=== PATIENT | male | born 1960 | race Caucasian/White ===

== ENCOUNTER 2025-02-09 13:04 | Emergency (ER) | payer OTHER, SELFPAY ==
--- OUTSIDE RECORDS SUMMARY | 2025-02-09 13:15 | XMS_ITS | Encounter Summary ---
Author Organization [facility] Address [address] [place] [address] Phone Care Team Providers Care Bench Hand Name Role Phone iJm Abbasi MD Primary Care Provider + Encounter Details Date Type Department Care Team (Late st Contact Info) Description 12/08/2024 Results Follow-Up [facility] Medical Office Building [address] [place] [address] James Kaur MD [address] [place], [place] [id number] ECG 12 lead Social History Tobacco Use Types Packs/Day Years Used Date Smoking Tobacco: Never Smokeless Tobacco: Never AUDIT-C Answer Date Recorded Q1: How often do you have a drink containing alcohol? Never 12/19/2024 Q2: How many drinks containi ng alcohol do you have on a typical day when you are drinking? Patient does not drink Q3: How often do you have si x or more drinks on one occasion? Never 12/19/2024 PHQ-2 Answer Date Recorded PHQ-2 Total Score (If total score is 3 or more points, staff should administer the PHQ-9) 1 05/08/2023 Personal Safety Answer Date Recorded Have you ever been in or are you currently in a harmful physical or emotional relationship or is someone making you feel afraid or unsafe? Denies 12/19/2024 Sex and Gender Information Value Date Recorded Sex Assigned at Not on file Legal Sex Male 3:34 AM [employer] Gender Identity Male 06/22/2020 2:09 PM CDT Sexual Orientation Not on file documented as of this encounter Functional Status * Audit-C Score Answer Date of Assessment Author 0 12/19/2024 7:02 AM Faviola Henriquez RN * Question Answer Date of Assessment Author Q1: How often do you have a drink containing alcohol? Never 12/19/2024 7:02 AM Brian Henriquez RN Q2: How many drinks containing alcohol do you have on a typical day when you are drinking? Patient does not drink 12/19/2024 7:02 AM Brian Henriquez RN Q3: How often do you have six or more drinks on one occasion? Never 12/19/2024 7:02 AM Brian Henriquez RN documented as of this encounter Plan of Treatment Not on file documented as of this encounter Visit Diagnoses Not on filedocumented in this encounter Care Teams Bench Hand Relationship Specialty Start Date End Date Jim Abbasi MD PCP - General Endocrinology Diabetes & Metabolism 06/15/20 documented as of this encounter
--- OUTSIDE RECORDS SUMMARY | 2025-02-09 13:15 | XMS_ITS | Referral Summary ---
Author Organization [facility] [address] [place] [address] Care Team Providers Care Construction Job Cost Estimator Name Role Phone Jim Abbasi MD Primary Care Provider + Encounters Date Type Department Care Team Description 12/22/2024 Telephone [facility] [address] [facility] 8th [place] [address] [place] [address] James Kaur MD 12/22/2024 Telephone [facility] [address] [facility] Office Building [address] [place] [address] [facility] 12/19/2024 Telephone [facility] [address] [facility] Office Building [address] [place] [address] [facility] 12/19/2024 Telephone [facility] [address] [facility] Office Building [address] [place] [address] [facility] 12/19/2024 Results Follow-Up [facility] [address] [facility] Office [facility] [address] [place] [phone] Maria E Lopez RN Cardiac Catheterization 12/19/2024 8:00 AM CDT - 12/19/2024 9:50 AM CDT Surgery [facility] [address] [place] [address] Mikel Reid MD LEFT HEART CATHETERIZATION WITH CORONARY ANGIOGRAPHY AND WITH OR WITHOUT LEFT VENTRICULOGRAM [id number] 12/19/2024 6:23 AM CDT - 12/19/2024 12:09 PM CDT Hospital Encounter [facility] [address] [place] [address] Mikel Reid MD Elevated coronary artery calcium score; Family history of coronary artery bypass graft Discharge Disposition: Discharge to home or self care 12/10/2024 9:20 AM CDT Lab [facility] [address] [place] [address] 12/08/2024 Telephone [facility] [address] [place] [address] Medical Office Building [address] [place] [phone] James Kaur MD [facility] 12/08/2024 Results Follow-Up [facility] [address] [place] [address] Office Building [address] [place] [phone] James Kaur MD ECG 12 lead 12/08/2024 2:00 PM CDT Office Visit [facility] [address] [place] [address] Office [facility] [address] [place] [phone] James Kaur MD Elevated coronary artery calcium score (Primary Dx); Family history of coronary artery bypass graft; Stable angina pectoris 12/05/2024 11:25 AM CDT - 12/05/2024 1:17 PM CDT Emergency [address] [address] Chest pain, unspecified type (Primary Dx) Discharge Disposition: Discharge to home or self care 12/03/2024 Telephone [facility] [address] [facility] 8th [place] [address] [place] [address] Celi Morales 12/01/2024 Results Follow-Up [facility] [address] [facility] [address] [facility] [place] [address] CORONARY CALCIUM SCORING 11/28/2024 3:23 PM CDT - 11/28/2024 11:59 PM CDT Hospital Encounter [facility] [address] [place] [address] Type 2 diabetes mellitus without complication, without long-term current use of insulin (HCC); Family history of coronary artery bypass graft Discharge Disposition: Discharge to home or self care 11/20/2024 Results Follow-Up [facility] [address] [place] [phone] Head WO Contrast 11/20/2024 8:22 AM CDT - 11/20/2024 11:59 PM CDT Hospital Encounter [facility] Rad[facility] ([facility]) [address] [place] [phone] Dizziness; Nonintractable headache, unspecified chronicity pattern, unspecified headache type Discharge Disposition: Discharge to home or self care 11/19/2024 Results Follow-Up [facility] [address] [place] [phone] Rajni Tovar NP Basic metabolic panel, eGFR 11/19/2024 11:00 AM CDT Lab [facility] ([facility]) [address] [place] [phone] Dizziness; Hyperkalemia 11/19/2024 9:15 AM CDT Office Visit [facility] [address] [place] [phone] Rajni Tovar NP Dizziness (Primary Dx); Nonintractable headache, unspecified chronicity pattern, unspecified headache type; Family history of coronary artery bypass graft 11/18/2024 Telephone [facility] [address] [place] [phone] Jim Abbasi MD Dizziness 11/12/2024 8:00 AM CRISIS INTERVENTION COUNSELOR Office Visit [facility] [address] [place] [address] Rajni Tovar NP Type 2 diabetes mellitus without complication, without long-term current use of insulin ([facility]) (Primary Dx); Psoriasis; Constipation, unspecified constipation type; Family history of coronary artery bypass graft from Last 3 Months Allergies Active Allergy Reactions Criticality Noted Date Comments Ragweed Medications multivitamin capsule Take 1 capsule by mouth daily Active Jardiance 25 mg tablet TAKE 1 TABLET(25 MG) BY MOUTH DAILY 30 tablet 11 4 Active metFORMIN (GLUCOPHAGE) 1,000 mg tablet TAKE 1 TABLET(1000 MG) BY MOUTH TWICE DAILY WITH MEALS 60 tablet 11 4 Active glimepiride (AMARYL) 2 mg tablet TAKE 1 TABLET(2 MG) BY MOUTH TWICE DAILY 180 tablet 3 4 Active polyethylene glycol (GoLYTELY) 236-22.74-6.74 -5.86 gram solutionIndicat ions:colonoscop y On 07/01/2024 at 6 PM, drink 1/2 jug of the Nulytely/Golytel y, then on 07/02/2024 at 3:30 AM drink the other 1/2 jug of the Nulytely/Golytel y until completely gone. May substitute with any 4 L PEG 4000 mL 4 Active Additional Information Patient not taking.Reported on 12/08/2024 clobetasoL (TEMOVATE) 0.05 % external solution 4 Active tirzepatide (Mounjaro) 7.5 mg/0.5 mL pen injector injectionIndica tions:type 2 diabetes mellitus Inject 0.5 mL (7.5 mg total) under the skin every 7 days 2 mL 11 5 11/13/19 26 Active meclizine (ANTIVERT) 25 mg tablet Take 1 tablet (25 mg total) by mouth 3 (three) times a day as needed for dizziness 30 tablet 5 Active aspirin 81 mg enteric coated tablet Take 1 tablet (81 mg total) by mouth daily 30 tablet 11 5 Active Active Problems Problem Noted Date Diagnosed Date Elevated coronary artery calcium score 5 Family history of coronary artery bypass graft 0 12/08/2024 Positive colorectal cancer screening using Colog uard test 06/10/2024 Type 2 diabetes mellitus wit hout complication, with long-term current use of insulin 06/15/2020 Overview (06/15/2020): Start SGLt2 Testicular hypofunction 06/15/2020 Overview (06/15/2020): Continue T replacement Skin tag 05/24/2016 Benign neoplasm of soft tissues 05/23/2016 Psoriasis vulgaris 05/10/2015 Psoriasis 02/09/2015 Immunizations Immunization Administration Dates Next Due Moderna SARS-CoV-2 Monovalen t Vaccination (12+ YRS) 08/17/2022,03/09/2022,07/07/2021 Social History Tobacco Use Types Packs/Day Years Used Date Smoking Tobacco: Never Smokeless Tobacco: Never Tobacco Cessation:Counseling Given: Not Answered AUDIT-C Answer Date Recorded Q1: How often [...] on file Legal Sex Male 3:34 AM CRISIS INTERVENTION COUNSELOR Gender Identity Male 06/22/2020 2:09 PM CDT Sexual Orientation Not on file Last Filed Vital Signs Vital Sign Reading Time Taken Comments Blood Pressure 129/80 12/19/2024 11:45 AM CDT Pulse 78 12/19/2024 11:45 AM CDT Temperature 36.8 C (98.2 F) 12/19/2024 6:50 AM CDT Respiratory Rate 19 12/19/2024 11:4 5 AM CDT Oxygen Saturation 96% 12/19/2024 11: 45 AM CDT Inhaled Oxygen Concentration - - Weight 106.7 kg (235 lb 3.7 oz) 12/19/2024 6:50 AM CDT Height 182.9 cm (6') 12/19/2024 6:50 AM CDT Body Mass Index 31.9 12/19/2024 6:50 AM CDT Plan of Treatment Not on file Procedures Procedure Name Priority Date/Time Associated Diagnosis Comments LEFT HEART CATHETERIZATION WITH CORONARY ANGIOGRAPHY AND WITH AND WITHOUT LEFT VENTRICULOGRAM Routine 12/19/2024 9:06 AM CDT Elevated coronary artery calcium score Family history of coronary artery bypass graft CBC WITHOUT DIFFERENTIAL Routine 12/19/2024 8:47 AM CDT POC BLOOD GAS AND CHEMISTRIES, ARTERIAL Routine 12/19/2024 7:21 AM CDT POC BLOOD GAS AND CHEMISTRIES, ARTERIAL Routine 12/19/2024 7:18 AM CDT EGFR Routine 12/10/2024 8:40 AM CDT Preprocedural cardiovascular examination DIFFERENTIAL AUTO Routine 12/10/2024 8:4 0 AM CDT Preprocedural cardiovascular examination LIPID PANEL Routine 12/10/2024 8:40 AM CDT Elevated coronary artery calcium score Family history of coronary artery bypass graft CBC WITH AUTO DIFFERENTIAL Routine 12/10/2024 8:40 AM CDT Preprocedural cardiovascular examination BASIC METABOLIC PANEL Routine 12/10/2024 8:40 AM CDT Preprocedural cardiovascular examination ECG 12-LEAD Routine 12/08/2024 1:58 PM CDT Elevated coronary artery calcium score TROPONIN T HIGH-SENSITIVITY 2-HOUR Timed 12/05/2024 12:35 PM CDT XR CHEST 1 VIEW ED 12/05/2024 11:00 AM CDT ECG 12-LEAD STAT 12/05/2024 10:32 AM CDT EGFR STAT 12/05/2024 10:29 AM CDT DIFFERENTIAL AUTO STAT 12/05/2024 10:29 AM CDT TROPONIN T HIGH-SENSITIVITY SERIES (BASELINE, 2HR, 4HR, 6HR) STAT 12/05/2024 10:29 AM CDT COMPREHENSIVE METABOLIC PANEL STAT 12/05/2024 10:29 AM CDT CBC WITH AUTO DIFFERENTIAL STAT 12/05/2024 10:[address] HEART CALCIUM Schedule Routine, Read Routine (OP Routine) 11/28/2024 3:43 PM CDT Type 2 diabetes mellitus without complication, without long-term current use of insulin (HCC) Family history of coronary artery bypass graft CT HEAD WO CONTRAST Schedule Routine, Read Routine (OP Routine) 11/20/2024 9:16 AM CDT Dizziness Nonintractable headache, unspecified chronicity pattern, unspecified headache type EGFR Routine 11/19/2024 9:52 AM CDT Dizziness BASIC METABOLIC PANEL Routine 11/19/2024 9:52 AM CDT Dizziness POCT HEMOGLOBIN A1C Routine 11/12/2024 8 :05 AM CRISIS INTERVENTION COUNSELOR Type 2 diabetes mellitus without complication, without long-term current use of insulin (HCC) COLONOSCOPY 08/12/2024 8:00 AM CRISIS INTERVENTION COUNSELOR ALBUMIN CREATININE RATIO, URINE Routine 05/09/2024 9:05 AM CDT Type 2 diabetes mellitus without complication, with long-term current use of insulin (HCC) PSA SCREEN Routine 05/09/2024 9:05 AM CDT Prostate cancer screening SERUM HEPATITIS PANEL Routine 02/09/2015 11:24 AM CDT from Last 3 Months or Most Recently Relevant to Health Maintenance Results * LEFT HEART CATHETERIZATION WITH CORONARY ANGIOGRAPHY AND WITH AND WITHOUT LEFT VENTRICULOGRAM (12/19/2024 9:06 AM CDT) Anatomical Region Laterality Modality X-Ray Angiograph y Impressions 12/19/2024 10:15 AM CDT Mild nonobstructive coronary disease Normal left ventricular end diastolic blood pressure.. THERAPEUTIC RECOMMENDATIONS: Secondary medical therapy for coronary disease Narrative 12/19/2024 10:15 AM CDT Images from the original result were not included. Cardiovascular Procedure [facility] [address], [address] [place] [phone] DIAGNOSTIC CATHETERIZATION REPORT Patient: Spencer Santana : 1960 MR number: [id number] Date of Service: 12/19/2024 Lead Recreation Assistant: Mikel Reid MD INDICATION: Stable angina CCS class 2 PATIENT CLINICAL PROFILE: Spencer Santana is a 64 y.o. male with a history of dyslipidemia, elevated coronary calcium score. He presented with a chest pain symptoms possibly compatible with angina. He was referred for diagnostic cardiac catheterization PROCEDURE: The risks, benefits and alternatives of the procedures and moderate sedation were explained to the patient and informed consent was obtained. The patient was brought to the cardiac catheterization technician and placed on the table. The RIGHT radial artery site was infiltrated with 1% lidocaine. The vessel was accessed using ultrasound guidance. Using the modified Seldinger technique, a wire was threaded into the vessel, and a 6 Fr Sheath was advanced over the wire into the vessel. Left coronary artery angiogram was performed using a 5 Fr JL3.5 catheter. Right coronary artery angiogram was performed using a 5 Fr JR4 catheter. Left ventricular hemodynamics were measured using jr4 catheter, no left ventriculogram was done. I provided direct [id number] moderate conscious sedation which administered by independent trained nurse using fentanyl and Versed for 30 minutes At the end of the procedure, the radial artery sheath was removed with TR band for hemostasis. Patient was transferred to the holding area in stable condition. RESULTS: Hemodynamics: Left ventricular blood pressure was 105/12. There was no gradient on pull back across the aortic valve Coronary Arteriography: Left main coronary: Normal Left anterior descending: Mild calcific plaque in the proximal LAD Left circumflex: Large vessel supplying major OM branches, mild 30 to 40% focal stenosis in OM2, otherwise normal Right coronary artery: Right dominant system. Mild plaquing distally, otherwise normal COMPLICATIONS: None. DIAGNOSTIC us James Kaur MD CV CARDIAC CATH PROCEDURES F inal Result * CBC without differential (12/19/2024 8:47 AM CDT) WBC 5.43 3.80 - 9.90 K/cumm Hgb 13.9 13.0 - 17.5 g/dL [facility] Hct 40.2 38.9 - 50.3 % [facility] Plt 203 150 - 400 K/cumm [facility] MPV 10.0 9.1 - 12.3 fL [facility] RBC 4.93 4.30 - 5.80 M/cumm [facility] MCV 81.5 81.3 - 96.4 fL [facility] MCH 28.2 27.1 - 33.3 pg [facility] MCHC 34.6 32.3 - 35.7 g/dL [facility] RDW CV 13.0 11.1 - 14.9 % [facility] RDW SD 38.3 35.7 - 48.1 fL [facility] NRBC abs 0.00 0.00 - 0.01 K/cumm [facility] Blood 12/19/2024 8:47 AM CDT 12/19/2024 8:53 AM CDT Narrative [facility] - 12/19/2024 9:18 AM CDT To be drawn after hydration bolus complete us Mikel Reid MD LAB BLOOD ORDERABLES Final Result [facility] Department [place] [address] * (ABNORMAL) POC Blood Gas and Chemistries, Arterial - (12/19/2024 7:21 AM CDT) [facility] Glucose, POC 241(H) 70 - 199 mg/dL Blood 12/19/2024 7:21 AM CDT 12/19/2024 7:21 AM CDT us Mikel Reid MD LAB POCT ORDERABLES - DEVICE Final Result Performing Organization Address [facility] Co de Phone Number [facility] [place] [address] * POC Blood Gas and Chemistries, Arterial - (12/19/2024 7:18 AM CDT) [facility] K POC 3.6 3.3 - 4.9 mmol/L Comment: Interpretive Data Not all point of care methods assess for hemolysis. Confirm with instrument and retest K+ if not consistent with clinical signs and symptoms. Current Interpretive Data was last revised on 2024. Blood 12/19/2024 7:18 AM CDT 12/19/2024 7:18 AM CDT us Mikel Reid MD LAB POCT ORDERABLES - DEVICE Final Result Performing Organization Address City/[facility] Co de Phone Number [facility] Department [place] [address] * eGFR (12/10/2024 8:40 AM CDT) [facility] eGFR >90 >=60 mL/min/1. 73 m2 Comment: Interpretive Data Reference Interval Normal >/= 90 mL/min/1.73m2 Mildly decreased* 60 - 89 mL/min/1.73m2 Mildly to moderately decreased 45 - 59 mL/min/1.73m2 Moderately to severely decreased 30 - 44 mL/min/1.73m2 Severely decreased 15 - 29 mL/min/1.73m2 Kidney Failure < 15 mL/min/1.73m2 *Relative to young adult level Estimated glomerular filtration rate is determined by the 2020 CKD-EPI equation recommended by the National Kidney Foundation (A Unifying Approach to GFR Estimation: Recommendations of the NKF-ASK Task Force on Reassessing the Inclusion of Race in Diagnosing Kidney Disease, JASN 202). The CKD-EPI equation should not be used for patients with unstable renal function and has not been validated in children and those over 70. Current interpretive data was last reviewed 2021. Blood 12/10/2024 8:40 AM CDT 12/10/2024 9:13 AM CDT us James Kaur MD LAB BLOOD ORDERABLES Final R esult [facility] Department [place] [address] * Differential, auto (12/10/2024 8:40 AM CDT) Neutrophil abs 4.28 1.50 - 6.50 K/cumm Imm gran abs 0.03 0.00 - 0.10 K/cumm [facility] Lymphocyte abs 1.53 0.80 - 3.30 K/cumm [facility] Monocyte abs 0.43 0.20 - 0.80 K/cumm [facility] Eosinophil abs 0.18 0.00 - 0.50 K/cumm [facility] Basophil abs 0.06 0.00 - 0.10 K/cumm [facility] Neutrophil pct 65.7 % [facility] Comment: Interpretive Data Percent cell count reference ranges are not reported, since discordance with absolute values may lead to misinterpretation of CBC data. Current Interpretive Data was last revised on 2017. Imm gran pct 0.5 % [facility] Comment: Interpretive Data Percent cell count reference ranges are not reported, since discordance with absolute values may lead to misinterpretation of CBC data. Current Interpretive Data was last revised on 2017. Lymphocyte pct 23.5 % [facility] Comment: Interpretive Data Percent cell count reference ranges are not reported, since discordance with absolute values may lead to misinterpretation of CBC data. Current Interpretive Data was last revised on 2017. Monocyte pct 6.6 % [facility] Comment: Interpretive Data Percent cell count reference ranges are not reported, since discordance with absolute values may lead to misinterpretation of CBC data. Current Interpretive Data was last revised on 2017. Eosinophil pct 2.8 % [facility] Comment: Interpretive Data Percent cell count reference ranges are not reported, since discordance with absolute values may lead to misinterpretation of CBC data. Current Interpretive Data was last revised on 2017. Basophil pct 0.9 % [facility] Comment: Interpretive Data Percent cell count reference ranges are not reported, since discordance with absolute values may lead to misinterpretation of CBC data. Current Interpretive Data was last revised on 2017. Blood 12/10/2024 8:40 AM CDT 12/10/2024 9:13 AM CDT us James Kaur MD LAB BLOOD ORDERABLES Final R esult [facility] Department [place] [address] * CBC with auto differential (12/10/2024 8:40 AM CDT) WBC 6.51 3.80 - 9.90 K/cumm Hgb 15.3 13.0 - 17.5 g/dL [facility] Hct 44.3 38.9 - 50.3 % [facility] Plt 242 150 - 400 K/cumm [facility] MPV 10.4 9.1 - 12.3 fL [facility] RBC 5.30 4.30 - 5.80 M/cumm [facility] MCV 83.6 81.3 - 96.4 fL [facility] MCH 28.9 27.1 - 33.3 pg [facility] MCHC 34.5 32.3 - 35.7 g/dL [facility] RDW CV 13.3 11.1 - 14.9 % [facility] RDW SD 40.2 35.7 - 48.1 fL [facility] NRBC abs 0.00 0.00 - 0.01 K/cumm [facility] Blood 12/10/2024 8:40 AM CDT 12/10/2024 9:13 AM CDT us James Kaur MD LAB BLOOD ORDERABLES Final R esult [facility] Department [place] [address] * (ABNORMAL) Lipid panel (12/10/2024 8:40 AM CDT) Cholesterol 124 30 - 199 mg/dL Comment: Interpretive Data Ages < or = 19 years Acceptable: <170 mg/dL Borderline high: 170-199 mg/dL High: >or= 200 mg/dL Ages > or = 20 years Desirable: <200 mg/dL Borderline high: 200-239 mg/dL High: >or= 240 mg/dL Literature References: 1. Expert Panel on Integrated Guidelines for Cardiovascular Health and Risk Reduction in Children and Adolescents. Pediatrics 2011;128:S213 2. NCEP Expert Panel. Circulation 2004;110:227 Current Interpretive Data was last revised on 2018. Triglycerides 139 <=149 mg/dL [facility] Comment: Interpretive Data Ages < or = 9 years Acceptable: <75 mg/dL Borderline high: 75-99 mg/dL High: >or= 100 mg/dL Ages 10 to 20 years Acceptable: <90 mg/dL Borderline high: 90-129 mg/dL High: >or= 130 mg/dL Ages > or = 20 years Desirable: <150 mg/dL Borderline high: 150-199 mg/dL High: 200-499 mg/dL Very high: >or= 499 mg/dL Literature References: 1. Expert Panel on Integrated Guidelines for Cardiovascular Health and Risk Reduction in Children and Adolescents. Pediatrics 2011;128:S213 2. NCEP Expert Panel. Circulation 2004;110:227 Current Interpretive Data was last revised on 2018. HDL 35(L) >=40 mg/dL [facility] Comment: Interpretive Data Ages < or = 19 years Acceptable: >45 mg/dL Borderline low: 40-45 mg/dL Low: <40 mg/dL Ages > or = 20 years Desirable: >or= 60 mg/dL Low: <40 mg/dL Literature References: 1. Expert Panel on Integrated Guidelines for Cardiovascular Health and Risk Reduction in Children and Adolescents. Pediatrics 2011;128:S213 2. NCEP Expert Panel. Circulation 2004;110:227 Current Interpretive Data was last revised on 2018. LDL, calculated 64 <=129 mg/dL [facility] Comment: Interpretive Data Ages < or = 19 years Acceptable: <110 mg/dL Borderline high: 110-129 mg/dL High: >or= 130 mg/dL Ages > or = 20 years Optimal: <100 mg/dL Near optimal: 100-129 mg/dL Borderline high: 130-159 mg/dL High: >160 mg/dL Calculated using the Axel LDL-C estimating equation. This equation was implemented on 2024. Prior to this date LDL-C was estimated using the Friedewald equation. Literature References: 1. Expert Panel on Integrated Guidelines for Cardiovascular Health and Risk Reduction in Children and Adolescents. Pediatrics 2011;128:S213 2. NCEP Expert Panel. Circulation 2004;110:227 3. Axel Cormier et al. WILMA Cardiol. 2019January 08;5(5):540-548. doi: 10.1001/jamacardio.2020.0013 Current Interpretive Data was last revised on 2024. Non-HDL Cholesterol 89 mg/dL [facility] Comment: Interpretive Data Ages < or = 19 years Acceptable: <120 mg/dL Borderline high: 120-144 mg/dL High: >145 mg/dL Ages > or = 20 years When triglycerides are >200 mg/dL, Non-HDL cholesterol is a secondary target of therapy with treatment goals that are 30 mg/dL greater than the LDL cholesterol target. Literature References: 1. Expert Panel on Integrated Guidelines for Cardiovascular Health and Risk Reduction in Children and Adolescents. Pediatrics 2011;128:S213 2. NCEP Expert Panel. Circulation 2004;110:227 Current Interpretive Data was last revised on 2018. Chol/HDL ratio 4 [facility] Blood 12/10/2024 8:40 AM CDT 12/10/2024 9:13 AM CDT James Kaur MD LAB BLOOD ORDERABLES Final R esult [facility] Department [place] [address] * (ABNORMAL) Basic metabolic panel (12/10/2024 8:40 AM CDT) [facility] Sodium 140 135 - 145 mmol/L Potassium, pl 5.1(H) 3.3 - 4.9 mmol/L [facility] Comment:Hemolyzed; Potassium value may be falsely elevated by as much as 0.6-1.0 mmol/L. Suggest redraw and reanalysis. Chloride 103 97 - 110 mmol/L [facility] CO2 26 22 - 32 mmol/L [facility] Anion gap 11 2 - 15 mmol/L [facility] BUN 13 6 - 25 mg/dL [facility] Creatinine 0.72(L) 0.80 - 1.30 mg/dL [facility] Glucose 213(H) 70 - 199 mg/dL [facility] Comment: Interpretive Data Fasting glucose >/= 126 mg/dl is diagnostic for diabetes. Fasting is defined as no caloric intake for at least 8 hours. Fasting glucose between 100 mg/dl to 125 mg/dl is diagnostic of prediabetes. In a patient with classic symptoms of hyperglycemia or hyperglycemic crisis, a random glucose >/= 200 mg/dl is diagnostic for diabetes. In the absence of unequivocal hyperglycemia, results should be confirmed by repeat testing. The classification and Diagnosis of Diabetes Diabetes Care 2021; 46: S19-S40. Current interpretive data was last revised 2022. Calcium 9.4 8.5 - 10.3 mg/dL [facility] Blood 12/10/2024 8:40 AM CDT 12/10/2024 9:13 AM CDT James Kaur MD LAB BLOOD ORDERABLES Final R esult MAURICIO GUTIERREZH [facility] Department [place] [address] * ECG 12 lead (12/08/2024 1:58 PM CDT) us James Kaur MD ECG ORDERABLES Edited Resul t - Final * Troponin T high-sensitivity 2-hour (12/05/2024 12:35 PM CDT) Trop T hs <6 <=22 ng/L Comment: Interpretive Data For further hscTnT resources including the diagnostic algorithm and an aid in interpretation, copy and paste this link: https://nrl.testcatalog.org/show/hsTrop Current Interpretive Data last revised 2020. Trop T hs delta 0 ng/L MAURICIO Trop T hs interp Insignificant [facility]IO Blood 12/05/2024 12:3 5 PM CDT 12/05/2024 12:37 PM CDT us Alex Austin DO LAB BLOOD ORDERABLES Final Result Performing Organization Address [facility] Co de Phone Number MAURICIO REESE [address] [facility] Department [place] [address] * XR Chest 1 Vw Portable (if patient condition/safety warrant portable) (12/05/2024 11:00 AM CDT) Anatomical Region Laterality Modality Body, Chest N/A Computed Radiogr aphy 12/05/2024 11:4 2 AM CDT Narrative 12/05/2024 11:43 AM CDT EXAM DESCRIPTION: XR CHEST 1 VIEW REASON FOR STUDY: chest pain Pt states intermittent dizziness, feeling hot, headaches x2-3 wks TECHNIQUE: Single frontal radiographic view(s) of the chest. COMPARISON: 11/28/2024 FINDINGS: The heart size is upper limits of normal. The pulmonary vasculature and mediastinum are grossly unremarkable. There is no definite evidence of a pneumothorax. There is no definite evidence of a focal consolidation or pleural effusion. There is mild reverse S shaped scoliotic curvature of the spine with degenerative changes. IMPRESSION: No acute cardiopulmonary abnormality. THIS IS AN ELECTRONICALLY VERIFIED FINAL REPORT 12/05/2024 11:43 AM - Electronically signed by Cisco Desai D.O. PS T: Report ID: [id number] Reading Location: [place] [address] Procedure Note Cisco Desai DO - 12/05/2024 EXAM DESCRIPTION: XR CHEST 1 VIEW REASON FOR STUDY: chest pain Pt states intermittent dizziness, feeling hot, headaches x2-3 wks TECHNIQUE: Single frontal radiographic view(s) of the chest. COMPARISON: 11/28/2024 FINDINGS: The heart size is upper limits of normal. The pulmonaryvasculature and mediastinum are grossly unremarkable. There is no definite evidenceof a pneumothorax. There is no definite evidence of a focal consolidation or pleural effusion. There is mild reverse S shaped scoliotic curvature of the spine with degenerative changes. IMPRESSION: No acute cardiopulmonary abnormality. THIS IS AN ELECTRONICALLY VERIFIED FINAL REPORT 12/05/2024 11:43 AM - Electronically signed by Cisco Desai D.O. PS T: Report ID: [id number] Reading Location: [place] [address] Alex Austin DO IMG XR PROCEDURES Final Res ult * ECG 12 lead (12/05/2024 10:32 AM CDT) Ventricular Rate EKG/Min 99 BPM [facility] Atrial Rate 99 BPM [facility] [place]-Interval (MSEC) 128 ms [facility] QRS-Interval (MSEC) 84 ms [facility] QT-Interval (MSEC) 352 ms [facility] QTc 451 ms [facility] P [place] 42 degrees [facility] R [place] 15 degrees [facility] T [place] 42 degrees [facility] Diagnosis Normal sinus rhythm Low voltage QRS Borderline ECG No previous ECGs available Confirmed by ALEJANDRA CHRISTIANSON M.D. ([id number]) on 12/06/2024 9:33:59 AM [facility] 12/05/2024 10:3 2 AM CDT 12/06/2024 9:33 AM CDT Alex Austin DO ECG ORDERABLES Final Resul t [facility] * Troponin T high-sensitivity series (baseline, 2hr, 4hr, 6hr) (12/05/2024 10:29 AM CDT) Trop T hs <6 <=22 ng/L Comment: Interpretive Data For further hscTnT resources including the diagnostic algorithm and an aid in interpretation, copy and paste this link: https://nrl.testcatalog.org/show/hsTrop Current Interpretive Data last revised 2020. Blood 12/05/2024 10:2 9 AM CDT 12/05/2024 10:36 AM CDT Alex Austin DO LAB BLOOD ORDERABLES Final Result Performing Organization Address City/[facility] Co de Phone Number MAURICIO [facility] [facility] Department [place] [address] * eGFR (12/05/2024 10:29 AM CDT) eGFR >90 >=60 mL/min/1. 73 m2 Comment: Interpretive Data Reference Interval Normal >/= 90 mL/min/1.73m2 Mildly decreased* 60 - 89 mL/min/1.73m2 Mildly to moderately decreased 45 - 59 mL/min/1.73m2 Moderately to severely decreased 30 - 44 mL/min/1.73m2 Severely decreased 15 - 29 mL/min/1.73m2 Kidney Failure < 15 mL/min/1.73m2 *Relative to young adult level Estimated glomerular filtration rate is determined by the 2020 CKD-EPI equation recommended by the National Kidney Foundation (A Unifying Approach to GFR Estimation: Recommendations of the NKF-ASK Task Force on Reassessing the Inclusion of Race in Diagnosing Kidney Disease, JASN 202). The CKD-EPI equation should not be used for patients with unstable renal function and has not been validated in children and those over 70. Current interpretive data was last reviewed 2021. Blood 12/05/2024 10:2 9 AM CDT 12/05/2024 10:36 AM CDT Alex Austin DO LAB BLOOD ORDERABLES Final Result [facility] [address] [facility] Department [place] [address] * Differential, auto (12/05/2024 10:29 AM CDT) Pathologist [facility] Neutrophil abs 4.8 1.5 - 6.5 K/cumm Imm gran abs 0.0 0.0 - 0.1 K/cumm [facility] Lymphocyte abs 1.3 0.8 - 3.3 K/cumm [facility] Monocyte abs 0.4 0.2 - 0.8 K/cumm [facility] Eosinophil abs 0.1 0.0 - 0.5 K/cumm [facility] Basophil abs 0.1 0.0 - 0.1 K/cumm [facility] Neutrophil pct 70.7 % [facility] Comment: Interpretive Data Percent cell count reference ranges are not reported, since discordance with absolute values may lead to misinterpretation of CBC data. Current Interpretive Data was last revised on 2017. Imm gran pct 0.6 % [facility] Comment: Interpretive Data Percent cell count reference ranges are not reported, since discordance with absolute values may lead to misinterpretation of CBC data. Current Interpretive Data was last revised on 2017. Lymphocyte pct 19.7 % [facility] Comment: Interpretive Data Percent cell count reference ranges are not reported, since discordance with absolute values may lead to misinterpretation of CBC data. Current Interpretive Data was last revised on 2017. Monocyte pct 6.2 % [facility] Comment: Interpretive Data Percent cell count reference ranges are not reported, since discordance with absolute values may lead to misinterpretation of CBC data. Current Interpretive Data was last revised on 2017. Eosinophil pct 2.1 % [facility] Comment: Interpretive Data Percent cell count reference ranges are not reported, since discordance with absolute values may lead to misinterpretation of CBC data. Current Interpretive Data was last revised on 2017. Basophil pct 0.7 % [facility] Comment: Interpretive Data Percent cell count reference ranges are not reported, since discordance with absolute values may lead to misinterpretation of CBC data. Current Interpretive Data was last revised on 2017. Blood 12/05/2024 10:2 9 AM CDT 12/05/2024 10:36 AM CDT Alex Austin LAB BLOOD ORDERABLES Final Result Performing Organization Address [facility] Co de Phone Number MAURICIO [address] [employer] [place], [place] [id number] * CBC with auto differential (12/05/2024 10:29 AM CDT) [facility] WBC 6.8 3.8 - 9.9 K/cumm Hgb 15.3 13.0 - 17.5 g/dL [facility] Hct 45.9 38.9 - 50.3 % [facility] Plt 226 150 - 400 K/cumm [facility] MPV 10.1 9.1 - 12.3 fL [facility] RBC 5.45 4.30 - 5.80 M/cumm [facility] MCV 84.2 81.3 - 96.4 fL [facility] MCH 28.1 27.1 - 33.3 pg [facility] MCHC 33.3 32.3 - 35.7 g/dL [facility] RDW CV 13.2 11.1 - 14.9 % [facility] RDW SD 40.8 35.7 - 48.1 fL [facility] NRBC abs 0.00 0.00 - 0.01 K/cumm [facility] Blood Venous blood specimen / Unknown 12/05/2024 10:29 AM CDT 12/05/2024 10:36 AM CDT Alex Austin DO LAB BLOOD ORDERABLES Final Result Performing Organization Address [facility] Co de Phone Number MAURICIO [address] [place] [address] * (ABNORMAL) Comprehensive metabolic panel (12/05/2024 10:29 AM CDT) Sodium 141 135 - 145 mmol/L Potassium, pl 3.9 3.3 - 4.9 mmol/L [facility] Chloride 104 97 - 110 mmol/L [facility] CO2 24 22 - 32 mmol/L [facility] Anion gap 13 2 - 15 mmol/L [facility] BUN 10 6 - 25 mg/dL [facility] Creatinine 0.70(L) 0.80 - 1.30 mg/dL [facility] Glucose 158 70 - 199 mg/dL [facility] Comment: Interpretive Data Fasting glucose >/= 126 mg/dl is diagnostic for diabetes. Fasting is defined as no caloric intake for at least 8 hours. Fasting glucose between 100 mg/dl to 125 mg/dl is diagnostic of prediabetes. In a patient with classic symptoms of hyperglycemia or hyperglycemic crisis, a random glucose >/= 200 mg/dl is diagnostic for diabetes. In the absence of unequivocal hyperglycemia, results should be confirmed by repeat testing. The classification and Diagnosis of Diabetes Diabetes Care 2021; 46: S19-S40. Current interpretive data was last revised 2022. Calcium 9.2 8.5 - 10.3 mg/dL [facility] Bilirubin, total 0.7 0.1 - 1.2 mg/dL [facility] Protein, pl 7.5 6.5 - 8.5 g/dL [facility] Albumin 4.3 3.5 - 5.0 g/dL [facility] Alk phos 55 40 - 130 Units/L [facility] ALT 19 7 - 55 Units/L [facility] AST 21 10 - 50 Units/L [facility] Blood 12/05/2024 10:2 9 AM CDT 12/05/2024 10:36 AM CDT Alex Austin DO LAB BLOOD ORDERABLES Final Result [facility]ICIO [address] [facility] Department [place] [address] * CT CORONARY CALCIUM SCORING (11/28/2024 3:43 PM CDT) Anatomical Region Laterality Modality Chest Computed Tomogra phy 12/01/2024 8:14 AM CDT Impressions 12/01/2024 8:14 AM CDT 1. Calcium score of 866.9 2. Incidental findings: Tiny pulmonary nodules which are indeterminate. Given their small sizes, if there is no history of tobacco use, no further follow-up is required. If there is a history of tobacco use, consider follow-up in a year. Electronically signed by: Lex Kowalski M.D. Narrative 12/01/2024 8:14 AM CDT EXAMINATION: CT OF THE HEART W/O CONTRAST - CORONARY CALCIUM TECHNIQUE: High-resolution, cardiac-gated Computed Tomography of the heart with attention devoted to the coronary arteries was performed with a 128 slice MDCT Scanner. Coronary calcification was analyzed using a [employer] 3D workstation with calcified plaque analysis software. RESULTS: Interpretation of coronary calcification is provided below: Your patient's Agatston Coronary Calcium score is 866.9. This total Coronary Calcium score of 866.9 places this patient in the greater than 90 percentile for an apparently healthy person of the same age and gender. In general, the lower the percentile rank, the lower the cardiac risk. This percentile rank assumes the absence of symptoms. Incidental Findings: A tiny nodule is seen within the right upper lobe anteriorly at slice position 82 that measures 6 mm. Another fissural nodule is seen on the left at slice position 94 that measures about 3 mm. The heart size is normal. There is no pleural or pericardial effusion. The Calcium Score should be interpreted in the context of several factors: Clinical decision-making requires the Calcium Score to be weighed along with other factors, i.e. the patient's age, gender, symptoms and risk factors. Normal score for any age is ideally zero. The Calcium Score has greater significance when it is above the 75th percentile of age and sex group. A score of zero indicates no coronary artery calcification and this implies the absence of significant angiographic coronary narrowing in 99% of cases. It does not absolutely rule out the presence of soft non-calcified plaque, especially in younger patients and those who smoke heavily. Procedure Note Lex Kowalski MD - 12/01/2024 EXAMINATION: CT OF THE HEART W/O CONTRAST - CORONARY CALCIUM TECHNIQUE: High-resolution, cardiac-gated Computed Tomography of the heart with attention devoted to the coronary arteries was performed with a 128 slice MDCT Scanner. Coronary calcification was analyzed using a [employer] 3D workstation with calcified plaque analysis software. RESULTS: Interpretation of coronary calcification is provided below: Your patient's Agatston Coronary Calcium score is 866.9. This total Coronary Calcium score of 866.9 places this patient in the greater than 90 percentile for an apparently healthy person of the same age and gender. In general, the lower the percentile rank, the lower the cardiac risk. This percentile rank assumes the absence of symptoms. Incidental Findings: A tiny nodule is seen within the right upper lobe anteriorly at slice position 82 that measures 6 mm. Another fissural nodule is seen on the left at slice position 94 that measures about 3 mm. The heart size is normal. There is no pleural or pericardial effusion. The Calcium Score should be interpreted in the context of several factors: Clinical decision-making requires the Calcium Score to be weighed along with other factors, i.e. the patient's age, gender, symptoms and risk factors. Normal score for any age is ideally zero. The Calcium Score has greater significance when it is above the 75th percentile of age and sex group. A score of zero indicates no coronary artery calcification and this implies the absence of significant angiographic coronary narrowing in 99% of cases. It does not absolutely rule out the presence of soft non-calcified plaque, especially in younger patients and those who smoke heavily. IMPRESSION: 1. Calcium score of 866.9 2. Incidental findings: Tiny pulmonary nodules which are indeterminate. Given their small sizes, if there is no history of tobacco use, no further follow-up is required. If there is a history of tobacco use, consider follow-up in a year. Electronically signed by: Lex Kowalski M.D. us Rajni Tovar NP IMG CT PROCEDURES Final Resul t * CT Head WO Contrast (11/20/2024 9:16 AM CDT) Anatomical Region Laterality Modality Head and Neck N/A Computed Tomogra phy 11/20/2024 9:58 AM CDT Impressions 11/20/2024 9:58 AM CDT No acute intracranial process. Electronically signed by: Yossi Lao MD Narrative 11/20/2024 9:58 AM CDT EXAMINATION: CT head without contrast HISTORY: 64 years-old Male with Headache, new onset (Age >= 51y), Dizziness. TECHNIQUE: CT of the head was performed with images acquired from skull base to vertex without intravenous contrast. COMPARISON: None Available. FINDINGS: There is no acute intracranial hemorrhage. Ventricles are of normal size and morphology. No mass effect or midline shift is present. The reyez-white matter differentiation is normal. Small hypodensity within the right basal ganglia, might represent old lacunar infarct versus prominent perivascular space. Mild microvascular white matter changes. Mild global cerebral volume loss. Atherosclerotic calcifications of the intracranial carotid arteries The visualized portions of the orbits are normal. The visualized portions of the mastoids are normal. Small retention cyst is present within the right maxillary sinus. No fractures are identified. Degenerative changes of the left temporomandibular joint. Procedure Note Yossi Lao MD PhD - 11/20/2024 EXAMINATION: CT head without contrast HISTORY: 64 years-old Male with Headache, new onset (Age >= 51y), Dizziness. TECHNIQUE: CT of the head was performed with images acquired from skull base to vertex without intravenous contrast. COMPARISON: None Available. FINDINGS: There is no acute intracranial hemorrhage. Ventricles are of normal size and morphology. No mass effect or midline shift is present. The reyez-white matter differentiation is normal. Small hypodensity within the right basal ganglia, might represent old lacunar infarct versus prominent perivascular space. Mild microvascular white matter changes. Mild global cerebral volume loss. Atherosclerotic calcifications of the intracranial carotid arteries The visualized portions of the orbits are normal. The visualized portions of the mastoids are normal. Small retention cyst is present within the right maxillary sinus. No fractures are identified. Degenerative changes of the left temporomandibular joint. IMPRESSION: No acute intracranial process. Electronically signed by: Yossi Lao MD Rajni Tovar NP IMG CT PROCEDURES Final Resul t * eGFR (11/19/2024 9:52 AM CDT) eGFR >90 >=60 mL/min/1. 73 m2 Comment: Interpretive Data Reference Interval Normal >/= 90 mL/min/1.73m2 Mildly decreased* 60 - 89 mL/min/1.73m2 Mildly to moderately decreased 45 - 59 mL/min/1.73m2 Moderately to severely decreased 30 - 44 mL/min/1.73m2 Severely decreased 15 - 29 mL/min/1.73m2 Kidney Failure < 15 mL/min/1.73m2 *Relative to young adult level Estimated glomerular filtration rate is determined by the 2020 CKD-EPI equation recommended by the National Kidney Foundation (A Unifying Approach to GFR Estimation: Recommendations of the NKF-ASK Task Force on Reassessing the Inclusion of Race in Diagnosing Kidney Disease, JASN 2020). The CKD-EPI equation should not be used for patients with unstable renal function and has not been validated in children and those over 70. Current interpretive data was last reviewed 2021. Blood 11/19/2024 9:52 AM CDT 11/19/2024 10:32 AM CDT Rajni Tovar NP LAB BLOOD ORDERABLES Final Re sult [facility] Department [place] [address] * (ABNORMAL) Basic metabolic panel (11/19/2024 9:52 AM CDT) Sodium 145 135 - 145 mmol/L Potassium, pl 5.0(H) 3.3 - 4.9 mmol/L [facility] Chloride 106 97 - 110 mmol/L [facility] CO2 29 22 - 32 mmol/L [facility] Anion gap 10 2 - 15 mmol/L [facility] BUN 16 6 - 25 mg/dL [facility] Creatinine 0.82 0.80 - 1.30 mg/dL [facility] Glucose 180 70 - 199 mg/dL [facility] Comment: Interpretive Data Fasting glucose >/= 126 mg/dl is diagnostic for diabetes. Fasting is defined as no caloric intake for at least 8 hours. Fasting glucose between 100 mg/dl to 125 mg/dl is diagnostic of prediabetes. In a patient with classic symptoms of hyperglycemia or hyperglycemic crisis, a random glucose >/= 200 mg/dl is diagnostic for diabetes. In the absence of unequivocal hyperglycemia, results should be confirmed by repeat testing. The classification and Diagnosis of Diabetes Diabetes Care 2021; 46: S19-S40. Current interpretive data was last revised 2022. Calcium 9.7 8.5 - 10.3 mg/dL [facility] GUTIERREZ Blood 11/19/2024 9:52 AM CDT 11/19/2024 10:32 AM CDT us Rajni Tovar INVESTMENT BANKING MANAGER LAB BLOOD ORDERABLES Final Re sult [facility] Department [place] [address] * POCT hemoglobin A1c (11/12/2024 8:05 AM CRISIS INTERVENTION COUNSELOR) Hemoglobin A1C, POC 7.8 4.0 - 5.6 % Capillary blood 11/12/2024 8 :05 AM CRISIS INTERVENTION COUNSELOR us Rajni Tovar INVESTMENT BANKING MANAGER POINT OF CARE TEST ORDERABLES Final Result * Colonoscopy (08/12/2024 8:00 AM CRISIS INTERVENTION COUNSELOR) Anatomical Region Laterality Modality Other Narrative Procedure Note Willy Reyes MD - 08/12/2024 8:00 AM CST [facility] Patient Name: Spencer Santana Procedure Date: 08/12/2024 8:00 AM Date of : 1960 Admit Type: Outpatient Age: 63 Gender: Male Attending MD: Willy Reyes M.D. Room: [facility] END[facility]COPY [facility] 4 Note Status: Finalized Procedure: Colonoscopy Indications: Positive Cologuard test Referring MD: JONATHAN Reese Providers: Willy Reyes M.D., Shilo Florence M.D. Medicines: Monitored Anesthesia Care Complications: No immediate complications. Estimated Blood Loss: Estimated blood loss: none. Procedure: Pre-Anesthesia Assessment: - Immediately prior to administration ofmedications, the patient was re-assessed for adequacy to receive sedatives. - The risks and benefits of the procedure and the sedation options and risks were discussed with the patient. All questions were answered and informed consent was obtained. The benefits, risks and alternatives of theprocedure and sedation were discussed and informed consentwas obtained. All questions were answered. Please referto the signed informed consent document in the medical record. The scope was passed under direct vision.The [id number] endoscope was introduced through the anus and advanced to the terminal ileum, with identification of the appendiceal orifice and IC valve. The bowel preparation used was GoLYTELY via split dose instruction. The terminal ileum,ileocecal valve, appendiceal orifice, and rectum were photographed. The entire colon was well visualized. The colonoscopy was performed with ease. Thepatient tolerated the procedure well. The quality of thebowel preparation was excellent. The quality of the bowel preparation was evaluated using the BBPS (BostonBowel Preparation Scale) with scores of: Right Colon = 3, Transverse Colon = 3 and Left Colon = 3 (entiremucosa seen well with no residual staining, smallfragments of stool or opaque liquid). The total BBPS score equals 9. Findings: The terminal ileum appeared normal. A 12 mm polyp was found in the cecum. The polyp was pedunculated. The polyp was removed with a hot snare. Resection and retrieval were complete. Two sessile polyps were found in the ascending colon. The polyps were5 mm in size. These polyps were removed with a jumbo cold forceps. Resection and retrieval were complete. A 12 mm polyp was found in the ascending colon. The polyp was pedunculated. The polyp was removed with a hot snare. Resection and retrieval were complete. At 40 cm was a 20 mm polyp was found in the sigmoid colon. The polypwas pedunculated. The polyp was removed with a hot snare. Resection and retrieval were complete. A 15 mm polyp was found in the sigmoid colon. The polyp was pedunculated. The polyp was removed with a hot snare. Resection and retrieval were complete. A 5 mm polyp was found in the sigmoid colon. The polyp was sessile.The polyp was removed with a hot snare. Resection and retrieval were complete. Scattered small-mouthed diverticula were found in the sigmoid colon, descending colon, transverse colon and ascending colon. The exam was otherwise without abnormality on direct and retroflexion views. Impression: - No specimens collected. A/P A. Positive Cologuard 05/30/2024: - Colonoscopy 08/12/2024 with seven colon polypsremoved - If adenoma (and no cancer) repeat colonoscopy in three years otherwise screening colonoscopy in ten years - No aspirin or NSAIDS x two weeks B. Mild divertiticulosis: asymptomatic; observe. Recommendation: - Discharge patient to home. - Resume previous diet. - Continue present medications. - No aspirin, ibuprofen, naproxen, or other non-steroidal anti-inflammatory drugs for 2 weeks after polyp removal. - Await pathology results. - Repeat colonoscopy in 3 years for surveillance. - Return to primary care physician PRN. Attending Participation: I was present and participated during the entire procedure, including non-onofre portions. Electronically signed by Willy Reyes M.D. Willy Reyes M.D. 08/12/2024 9:30:17 AM . Number of Addenda: 0 Note Initiated On: 08/12/2024 8:00 AM us Willy Reyes MD ENDOSCOPY PROCEDURES Final Result * PSA screen (05/09/2024 9:05 AM CDT) PSA 2.5 0.0 - 4.0 ng/mL [facility] - 01 Comment: David ECLIA methodology. According to the [place] [employer], Serum PSA should decrease and remain at undetectable levels after radical prostatectomy. The AUA defines biochemical recurrence as an initial PSA value 0.2 ng/mL or greater followed by a subsequent confirmatory PSA value 0.2 ng/mL or greater. Values obtained with different assay methods or kits cannot be used interchangeably. Results cannot be interpreted as absolute evidence of the presence or absence of malignant disease. Blood 05/09/2024 9:05 AM CDT 05/09/2024 Narrative [facility] - 05/10/2024 5:09 AM CDT Performed at: [facility] [id number] [employer] Plant Laborer: Robles Juarez PhD, Phone: [phone] us Rajni Tovar INVESTMENT BANKING MANAGER LAB BLOOD ORDERABLES Final Re sult [facility] - 01 * Albumin Creatinine Ratio, Urine (05/09/2024 9:05 AM CDT) Creatinine ur 50.0 Not Estab. mg/dL [facility] - 01 Microalbumin, ur <3.0 Not Estab. ug/mL [facility] - 01 Microalbumin/cre at ratio <6 0 - 29 mg/g creat [facility] - 01 Comment: Normal: 0 - 29 Moderately increased: 30 - 300 Severely increased: >300 Urine 05/09/2024 9:05 AM CDT 05/09/2024 Narrative [facility] - 05/10/2024 5:09 AM CDT Performed at: [facility] [id number] [employer] Laborer: Robles Juarez PhD, Phone: [phone] us Rajni Tovar INVESTMENT BANKING MANAGER LAB URINE ORDERABLES Final Re sult Performing Organization Address [facility] Co de Phone Number [facility] - 01 * Serum Hepatitis panel (02/09/2015 11:24 AM CDT) HCV ab Negative NEG HISTORICAL RESULTS Comment: Interpretive Data If confirmation is required, call Laboratory Customer Service to request sample to be sent to [facility] for Hepatitis C Virus (HCV) RNA Detection and Quantitation by Real-Time Reverse Director Of Casino-PCR (RT-PCR). Current interpretive data was last revised on 2011 HBV surface ag Negative NEG HISTO RICAL RESULTS HBV core ab, IgM Negative NEG HIS TORICAL RESULTS Comment: Interpretive Data If test is reported as Equivocal, new sample should be drawn for testing. Current interpretive data was last revised on 2008. HAV ab, IgM Negative NEG HISTORIC AL RESULTS Comment: Interpretive Data If test is reported as Equivocal, new sample should be drawn in two weeks for testing. Current interpretive data was last revised on 2008. Serum 02/09/2015 11:2 4 AM CDT Narrative HISTORICAL RESULTS - 02/11/2015 5:34 AM CDT Client / Account bill? No Client Account Number and Description: us Juan Ponce MD LAB BLOOD ORDERABLES Rina l Result Performing Organization Address [facility] Co de Phone Number HISTORICAL RESULTS from Last 3 Months or Most Recently Relevant to Health Maintenance Insurance [facility]ICE PLUS [facility] HMO/PPO Address: [address] [address] [place] [address] [employer] SIG [id number] A[employer] SIG [id number] A[employer] SIG [id number] Advance Directives For more information, please contact: [phone] * Full Code (Latest Code Status on File) Date Activated Date Inactivated Comments 12/19/2024 9:37 AM 12/19/2024 4:09 PM * Full Code Date Activated Date Inactivated Comments 08/12/2024 7:45 AM 08/12/2024 2:36 PM Care Teams Construction Job Cost Estimator Relationship Specialty Start Date End Date Jim Abbasi MD PCP - General Endocrinology Diabetes & Metabolism 06/15/20
--- OUTSIDE RECORDS SUMMARY | 2025-02-09 13:15 | XMS_ITS | Clinical Summary ---
Author Organization [facility] [address] [place] [address] Care Team Providers Care Business Technology Professor Name Role Phone Jim Abbasi MD Primary Care Provider + Allergies Active Allergy Reactions Criticality Noted Date [...] tissues 05/23/2016 Psoriasis vulgaris 05/10/2015 Psoriasis 02/09/2015 Encounters Date Type Department Care Team Description 12/22/2024 Telephone [facility] Cardiology [address] [facility] 8th [place] [address] [place] [address] James Kaur MD 12/22/2024 Telephone [facility] Cardiology [address] [facility] Medical Office Building [address] [place] [address] Alaina Tobin 12/19/2024 8:00 AM CDT - 12/19/2024 9:50 AM CDT Surgery [facility] [address] [place] [phone] Mikel Reid MD LEFT HEART CATHETERIZATION WITH CORONARY ANGIOGRAPHY AND WITH OR WITHOUT LEFT VENTRICULOGRAM [id number] 12/19/2024 6:23 AM CDT - 12/19/2024 12:09 PM CDT Hospital Encounter [facility] [address] [place] [address] Mikel Reid MD Elevated coronary artery calcium score; Family history of coronary artery bypass graft Discharge Disposition: Discharge to home or self care 12/19/2024 Telephone [facility] Cardiology [facility] Medical Office Building [address] [place] [address] [facility] 12/19/[address] Office [facility] [address] [place] [address] [facility] 12/19/2024 Results Follow-Up [address] Office Building [address] [place] [address] Maria E Lopez RN Cardiac Catheterization 12/10/2024 9:20 AM CDT Lab [facility] Advanced [facility] ([facility]) [address] [place] [phone] 12/08/2024 2:00 PM CDT Office Visit [place] [id number] [facility] Office Building [address] [place] [address] James Kaur MD Elevated coronary artery calcium score (Primary Dx); Family history of coronary artery bypass graft; Stable angina pectoris 12/08/2024 Telephone [place] [address] [facility] Office Building [address] [place] [phone] James Kaur MD [facility] 12/08/2024 Results Follow-Up [facility] Cardiology [address] [place] [address] [address] [place] [phone] James Kaur MD ECG 12 lead 12/05/2024 11:25 AM CDT - 12/05/2024 1:17 PM CDT Emergency [address] [address] Chest pain, unspecified type (Primary Dx) Discharge Disposition: Discharge to home or self care 12/03/2024 Telephone [facility] Cardiology [address] [place] [address] Advanced [facility] 8th [place] [address] [place] [address] Padmini Moralesye 12/01/2024 Results Follow-Up [facility] [address] [place] [address] CORONARY CALCIUM SCORING 11/28/2024 3:23 PM CDT - 11/28/2024 11:59 PM CDT Hospital Encounter [facility] Imaging [address] [place] [id number] Type 2 diabetes mellitus without complication, without long-term current use of insulin (HCC); Family history of coronary artery bypass graft Discharge Disposition: Discharge to home or self care 11/20/2024 8:22 AM CDT - 11/20/2024 11:59 PM CDT Hospital Encounter [facility] [address] [place] [address] Dizziness; Nonintractable headache, unspecified chronicity pattern, unspecified headache type Discharge Disposition: Discharge to home or self care 11/20/2024 Results Follow-Up [facility] [address] [place] [address] Head WO Contrast 11/19/2024 11:00 AM CDT Lab [facility] ([facility] [address] [place] [address] Dizziness; Hyperkalemia 11/19/2024 9:15 AM CDT Office [facility] [address] [facility] [address] [facility] [place] [address] Rajni Tovar NP Dizziness (Primary Dx); Nonintractable headache, unspecified chronicity pattern, unspecified headache type; Family history of coronary artery bypass graft 11/19/2024 Results Follow-Up [facility] [address] [place] [address] Rajni Tovar NP Basic metabolic panel, eGFR 11/18/2024 Telephone [facility] [address] [facility] [address] [place] [address] Jim Abbasi MD Dizziness 11/12/2024 8:00 AM TOURIST INFORMATION ASSISTANT Office Visit [facility] [address] [facility] [address] [place] [address] Rajni Tovar NP Type 2 diabetes mellitus without complication, without long-term current use of insulin (HCC) (Primary Dx); Psoriasis; Constipation, unspecified constipation type; Family history of coronary artery bypass graft from Last 3 Months Immunizations Immunization Administration Dates Next Due Moderna SARS-CoV-2 Monovalen t Vaccination (12+ YRS) 08/17/2022,03/09/2022,07/07/2021 Surgical History Surgery Date Site/Laterality Comments SHOULDER SURGERY Left KNEE SURGERY Right COLONOSCOPY ORAL SURGERY WISDOM TOOTH EXTRACTION CARDIAC CATHETERIZATION 12/19/2024 N/A Procedure: LEFT HEART CATHETERIZATION WITH CORONARY ANGIOGRAPHY AND WITH OR WITHOUT LEFT VENTRICULOGRAM [id number]; Surgeon: Mikel Reid MD; Location: [facility] CARDIAC PIPING DESIGNER; Service: Cardiovascular; Laterality: N/A; [facility] Patient allergies- no IV dye no Anticoagulation- asa 81 mg Medical History Medical History Date Comments Diabetes insipidus Diverticulosis Diverticulitis Family History Medical History Relation Name Comments Diabetes Father Family history of diabetes mellitus - (Added by Conv) Heart disease Father CABG x5 Hypertension Mother Family history of hypertension - (Added by TW Conv) Diabetes Other Family history of diabetes mellitus - (Added by TW Conv) Relation Name Status Comments Father Mother Other Social History Tobacco Use Types Packs/Day Years [...] on file Legal Sex Male 3:34 AM TOURIST INFORMATION ASSISTANT Gender Identity Male 06/22/2020 2:09 PM CDT Sexual Orientation Not on file Obstetrics History Last Filed Vital Signs Vital Sign Reading [...] 12/19/2024 6:50 AM CDT Plan of Treatment Health Maintenance Due Date Last Done Comments Dilated Eye Exam 1960 DTaP/Tdap/Td Vaccine (1 - Tdap) 1973 Hepatitis B Screening 1980 Depression Screening 05/08/2024 05/08/2023, 05/08/20 23 Covid-19 Vaccine (2023-2 5 season) 2024 06/20/2023, 08/17/2022, 08/17/2022, Additional history exists Albumin Creatinine Ratio, Urine 05/09/2025 Regular Well Visit/Exam 18-64 05/09/2025, 04/27/2022, 04/19/2021 Influenza Vaccine (Season Ended) 2025 06/20/20 23, 06/14/2022 Hemoglobin A1C 05/15/2025 11/12/2024, 04/12, 11/12/2023, Additional history exists Foot Exam 11/12/2025 11/12/2024, 05/09/2024 Lipid Panel 12/10/2025 12/10/2024, 04/12, 11/02/2022, Additional history exists eGFR 12/10/2025 12/10/2024, 11/09, 11/19/2024, Additional history exists Prostate Cancer Screening-PSA 05/09/2026, 05/08/2023, 04/27/2022, Additional history exists Colon Cancer Screening-Colonoscopy 08/12/2034 08/12/2024 Hepatitis C Screening Completed 02/09/2015 Pneumococcal vaccine <65 Completed 06/14/2022 Zoster Vaccine Completed 08/17/2022, 06/14/2022 Colon Cancer Screening-CT Colonography Discontinued 08/12/2024 Colon Cancer Screening-DNA Stool Discontinued 08/12/2024, 05/30/2024, 05/06/2021 Colon Cancer Screening-FIT Discontinued 08/12, 05/30/2024, 05/06/2021 Colon Cancer Screening-Sigmoidoscopy Discontinued 08/12/2024 Procedures Procedure Name Priority Date/Time Associated Diagnosis [...] HEMOGLOBIN A1C Routine 11/12/2024 8 :05 AM TOURIST INFORMATION ASSISTANT Type 2 diabetes mellitus without complication, without long-term current use of insulin (HCC) COLONOSCOPY 08/12/2024 8:00 AM TOURIST INFORMATION ASSISTANT ALBUMIN CREATININE RATIO, URINE Routine 05/09/2024 9:05 [...] result were not included. Cardiovascular Procedure Center [facility] [address], [address] [place] [phone] DIAGNOSTIC CATHETERIZATION REPORT Patient: [place] : 1960 MR number: [id number] Date of Service: 12/19/2024 Manager Continuous Improvement: Mikel Reid MD INDICATION: Stable angina CCS [...] obtained. The patient was brought to the slab lifting supervisor and placed on the table. The RIGHT [...] left ventriculogram was done. I provided direct [id number] moderate conscious sedation which administered by independent [...] K/cumm Hgb 13.9 13.0 - 17.5 g/dL [facility] Hct 40.2 38.9 - 50.3 % [facility] Plt 203 150 - 400 K/cumm [facility] MPV 10.0 9.1 - 12.3 fL [facility] RBC 4.93 4.30 - 5.80 M/cumm [facility] MCV 81.5 81.3 - 96.4 fL [facility] MCH 28.2 27.1 - 33.3 pg [facility] MCHC 34.6 32.3 - 35.7 g/dL [facility] RDW CV 13.0 11.1 - 14.9 % [facility] RDW SD 38.3 35.7 - 48.1 fL [facility] NRBC abs 0.00 0.00 - 0.01 K/cumm [facility] Blood 12/19/2024 8:47 AM CDT 12/19/2024 8:53 AM CDT Narrative [facility] - 12/19/2024 9:18 AM CDT To be drawn after hydration bolus complete Mikel Reid MD LAB BLOOD ORDERABLES Final Result [facility] Department [place] [address] * (ABNORMAL) POC Blood Gas and Chemistries, Arterial - (12/19/2024 7:21 AM CDT) Glucose, POC 241(H) 70 - 199 mg/dL Blood 12/19/2024 7:21 AM CDT 12/19/2024 7:21 AM CDT Mikel Reid MD LAB POCT ORDERABLES - DEVICE Final Result Performing Organization Address City/[facility]/ZIP Co de Phone Number [facility] Department [place] [address] * POC Blood Gas and Chemistries, Arterial - (12/19/2024 7:18 AM CDT) K POC 3.6 3.3 - 4.9 mmol/L [...] - DEVICE Final Result Performing Organization Address [facility] de Phone Number [facility] Department [place] [address] * eGFR (12/10/2024 8:40 AM CDT) eGFR >90 >=60 mL/min/1. 73 [...] MD LAB BLOOD ORDERABLES Final R esult Performing Organization Address City/[facility] Co de Phone Number [facility] Department [place] [address] * Differential, auto (12/10/2024 8:40 AM CDT) Neutrophil abs 4.28 1.50 - 6.50 K/cumm Imm gran abs 0.03 0.00 - 0.10 K/cumm [facility] Lymphocyte abs 1.53 0.80 - 3.30 K/cumm [facility] Monocyte abs 0.43 0.20 - 0.80 K/cumm [facility] Eosinophil abs 0.18 0.00 - 0.50 K/cumm [facility] Basophil abs 0.06 0.00 - 0.10 K/cumm [facility] Neutrophil pct 65.7 % [facility] Comment: Interpretive Data Percent cell count reference ranges are not reported, since discordance with absolute values may lead to misinterpretation of CBC data. Current Interpretive Data was last revised on 2017. Imm gran pct 0.5 % [facility] Comment: Interpretive Data Percent cell count reference ranges are not reported, since discordance with absolute values may lead to misinterpretation of CBC data. Current Interpretive Data was last revised on 2017. Lymphocyte pct 23.5 % [facility] Comment: Interpretive Data Percent cell count reference ranges are not reported, since discordance with absolute values may lead to misinterpretation of CBC data. Current Interpretive Data was last revised on 2017. Monocyte pct 6.6 % [facility] Comment: Interpretive Data Percent cell count reference ranges are not reported, since discordance with absolute values may lead to misinterpretation of CBC data. Current Interpretive Data was last revised on 2017. Eosinophil pct 2.8 % [facility] Comment: Interpretive Data Percent cell count reference ranges are not reported, since discordance with absolute values may lead to misinterpretation of CBC data. Current Interpretive Data was last revised on 2017. Basophil pct 0.9 % [facility] Comment: Interpretive Data Percent cell count reference ranges are not reported, since discordance with absolute values may lead to misinterpretation of CBC data. Current Interpretive Data was last revised on 2017. Blood 12/10/2024 8:40 AM CDT 12/10/2024 9:13 AM CDT us James Kaur MD LAB BLOOD ORDERABLES Final R esult [facility] Department [place] [address] * CBC with auto differential (12/10/2024 8:40 AM CDT) Pathologist [facility] WBC 6.51 3.80 - 9.90 K/cumm Hgb 15.3 13.0 - 17.5 g/dL [facility] Hct 44.3 38.9 - 50.3 % [facility] Plt 242 150 - 400 K/cumm [facility] MPV 10.4 9.1 - 12.3 fL [facility] RBC 5.30 4.30 - 5.80 M/cumm [facility] MCV 83.6 81.3 - 96.4 fL [facility] MCH 28.9 27.1 - 33.3 pg [facility] MCHC 34.5 32.3 - 35.7 g/dL [facility] RDW CV 13.3 11.1 - 14.9 % [facility] RDW SD 40.2 35.7 - 48.1 fL [facility] NRBC abs 0.00 0.00 - 0.01 K/cumm [facility] Blood 12/10/2024 8:40 AM CDT 12/10/2024 9:13 AM CDT us James Kaur MD LAB BLOOD ORDERABLES Final R esult [facility] Department [place] [address] * (ABNORMAL) Lipid panel (12/10/2024 8:40 AM CDT) Pathologist [facility] Cholesterol 124 30 - 199 mg/dL Comment: [...] revised on 2018. Triglycerides 139 <=149 mg/dL [facility] Comment: Interpretive Data Ages < or = [...] revised on 2018. HDL 35(L) >=40 mg/dL [facility] Comment: Interpretive Data Ages < or = [...] on 2018. LDL, calculated 64 <=129 mg/dL [facility] Comment: Interpretive Data Ages < or = [...] NCEP Expert Panel. Circulation 2004;110:227 3. Axel Gómez al. WILMA Cardiol. 2019January 08;5(5):540-548. doi: 10.1001/jamacardio.2020.0013 Current Interpretive Data was last revised on 2024. Non-HDL Cholesterol 89 mg/dL [facility] Comment: Interpretive Data Ages < or = [...] last revised on 2018. Chol/HDL ratio 4 [facility] Blood 12/10/2024 8:40 AM CDT 12/10/2024 9:13 AM CDT us James Kaur MD LAB BLOOD ORDERABLES Final R esult [facility] Department [place] [address] * (ABNORMAL) Basic metabolic panel (12/10/2024 8:40 AM CDT) Sodium 140 135 - 145 mmol/L Potassium, pl 5.1(H) 3.3 - 4.9 mmol/L [facility] Comment:Hemolyzed; Potassium value may be falsely elevated by as much as 0.6-1.0 mmol/L. Suggest redraw and reanalysis. Chloride 103 97 - 110 mmol/L [facility] CO2 26 22 - 32 mmol/L [facility] Anion gap 11 2 - 15 mmol/L [facility] BUN 13 6 - 25 mg/dL [facility] Creatinine 0.72(L) 0.80 - 1.30 mg/dL [facility] Glucose 213(H) 70 - 199 mg/dL [facility] Comment: Interpretive Data Fasting glucose >/= 126 [...] 2022. Calcium 9.4 8.5 - 10.3 mg/dL [facility] Blood 12/10/2024 8:40 AM CDT 12/10/2024 9:13 AM CDT James Kaur MD LAB BLOOD ORDERABLES Final R esult [facility] Department [place] [address] * ECG 12 lead (12/08/2024 1:58 PM CDT) James Kaur MD ECG ORDERABLES Edited Resul [...] ng/L [facility] Trop T hs interp Insignificant [facility] Blood 12/05/2024 12:3 5 PM CDT 12/05/2024 12:37 PM CDT Alex Austin DO LAB BLOOD ORDERABLES Final Result [facility] [address] [facility] Department [place] [address] * XR Chest 1 Vw Portable (if [...] Cisco Desai D.O. PS T: Report ID: [id number] Reading Location: [id number] Procedure Note Cisco Desai DO - 12/05/2024 [...] Cisco Desai D.O. PS T: Report ID: [id number] Reading Location: [id number] us Alex Austin DO IMG XR PROCEDURES Final Res ult * ECG 12 lead (12/05/2024 10:32 AM CDT) Pathologist [facility] Ventricular Rate EKG/Min 99 BPM [facility] Atrial Rate 99 BPM [facility] ID-Interval (MSEC) 128 ms [facility] QRS-Interval (MSEC) 84 ms [facility] QT-Interval (MSEC) 352 ms [facility] QTc 451 ms [facility] P Burnet 42 degrees [facility] R Burnet 15 degrees [facility] T Burnet 42 degrees [facility] Diagnosis Normal sinus rhythm Low voltage QRS Borderline ECG No previous ECGs available Confirmed by ALEJANDRA CHRISTIANSON M.D. ([id number]) on 12/06/2024 9:33:59 AM [facility] 12/05/2024 10:3 2 AM CDT 12/06/2024 9:33 AM CDT Alex Austin DO ECG ORDERABLES Final Resul t Performing Organization Address City/[facility]/ZIP Co de Phone Number [facility] * Troponin T high-sensitivity series (baseline, 2hr, 4hr, 6hr) (12/05/2024 10:29 AM CDT) [facility] Trop T hs <6 <=22 ng/L Comment: Interpretive Data For further hscTnT resources including the diagnostic algorithm and an aid in interpretation, copy and paste this link: https://nrl.testcatalog.org/show/hsTrop Current Interpretive Data last revised 2020. Blood 12/05/2024 10:2 9 AM CDT 12/05/2024 10:36 AM CDT us Alex Austin DO LAB BLOOD ORDERABLES Final Result [facility] [address] [facility] Department [place] [address] * eGFR (12/05/2024 10:29 AM CDT) [facility] eGFR >90 >=60 mL/min/1. 73 m2 Comment: [...] Austin DO LAB BLOOD ORDERABLES Final Result [facility] [address] [facility] Department [place] [address] * Differential, auto (12/05/2024 10:29 AM CDT) Neutrophil abs 4.8 1.5 - 6.5 K/cumm Imm gran abs 0.0 0.0 - 0.1 K/cumm [facility] Lymphocyte abs 1.3 0.8 - 3.3 K/cumm [facility] Monocyte abs 0.4 0.2 - 0.8 K/cumm [facility] Eosinophil abs 0.1 0.0 - 0.5 K/cumm [facility] Basophil abs 0.1 0.0 - 0.1 K/cumm [facility] Neutrophil pct 70.7 % [facility] Comment: Interpretive Data Percent cell count reference ranges are not reported, since discordance with absolute values may lead to misinterpretation of CBC data. Current Interpretive Data was last revised on 2017. Imm gran pct 0.6 % [facility] Comment: Interpretive Data Percent cell count reference ranges are not reported, since discordance with absolute values may lead to misinterpretation of CBC data. Current Interpretive Data was last revised on 2017. Lymphocyte pct 19.7 % [facility] Comment: Interpretive Data Percent cell count reference ranges are not reported, since discordance with absolute values may lead to misinterpretation of CBC data. Current Interpretive Data was last revised on 2017. Monocyte pct 6.2 % [facility] Comment: Interpretive Data Percent cell count reference ranges are not reported, since discordance with absolute values may lead to misinterpretation of CBC data. Current Interpretive Data was last revised on 2017. Eosinophil pct 2.1 % [facility] Comment: Interpretive Data Percent cell count reference ranges are not reported, since discordance with absolute values may lead to misinterpretation of CBC data. Current Interpretive Data was last revised on 2017. Basophil pct 0.7 % [facility] Comment: Interpretive Data Percent cell count reference ranges are not reported, since discordance with absolute values may lead to misinterpretation of CBC data. Current Interpretive Data was last revised on 2017. Blood 12/05/2024 10:2 9 AM CDT 12/05/2024 10:36 AM CDT Alex Austin DO LAB BLOOD ORDERABLES Final Result [facility] [address] [facility] Department [place] [address] * CBC with auto differential (12/05/2024 10:29 AM CDT) WBC 6.8 3.8 - 9.9 K/cumm Hgb 15.3 13.0 - 17.5 g/dL [facility] Hct 45.9 38.9 - 50.3 % [facility] Plt 226 150 - 400 K/cumm [facility] MPV 10.1 9.1 - 12.3 fL [facility] RBC 5.45 4.30 - 5.80 M/cumm [facility] MCV 84.2 81.3 - 96.4 fL [facility] MCH 28.1 27.1 - 33.3 pg [facility] MCHC 33.3 32.3 - 35.7 g/dL [facility] RDW CV 13.2 11.1 - 14.9 % [facility] RDW SD 40.8 35.7 - 48.1 fL [facility] NRBC abs 0.00 0.00 - 0.01 K/cumm [facility] Blood Venous blood specimen / Unknown 12/05/2024 10:29 AM CDT 12/05/2024 10:36 AM CDT Alex Austin DO LAB BLOOD ORDERABLES Final Result [facility] [address] [facility] Department [place] [address] * (ABNORMAL) Comprehensive metabolic panel (12/05/2024 10:29 AM CDT) Sodium 141 135 - 145 mmol/L Potassium, pl 3.9 3.3 - 4.9 mmol/L [facility] Chloride 104 97 - 110 mmol/L [facility] CO2 24 22 - 32 mmol/L [facility] Anion gap 13 2 - 15 mmol/L [facility] BUN 10 6 - 25 mg/dL [facility] Creatinine 0.70(L) 0.80 - 1.30 mg/dL [facility] Glucose 158 70 - 199 mg/dL [facility] Comment: Interpretive Data Fasting glucose >/= 126 [...] 2022. Calcium 9.2 8.5 - 10.3 mg/dL [facility] Bilirubin, total 0.7 0.1 - 1.2 mg/dL [facility] Protein, pl 7.5 6.5 - 8.5 g/dL [facility] Albumin 4.3 3.5 - 5.0 g/dL [facility] Alk phos 55 40 - 130 Units/L [facility] ALT 19 7 - 55 Units/L [facility] AST 21 10 - 50 Units/L [facility] Blood 12/05/2024 10:2 9 AM CDT 12/05/2024 10:36 AM CDT Alex Randolph Norman DO LAB BLOOD ORDERABLES Final Result [facility] [address] [facility] Department [place] [address] * CT CORONARY CALCIUM SCORING (11/28/2024 3:43 [...] Scanner. Coronary calcification was analyzed using a [employer] 3D workstation with calcified plaque analysis software. [...] Scanner. Coronary calcification was analyzed using a [employer] 3D workstation with calcified plaque analysis software. [...] signed by: Lex Kowalski M.D. us Rajni Thomasjefferson Tovar NP IMG CT PROCEDURES Final Resul [...] process. Electronically signed by: Yossi Lao MD us Rajni Tovar NP IMG CT PROCEDURES [...] 11/19/2024 10:32 AM CDT us Rajni Tovar NP LAB BLOOD ORDERABLES Final Re sult [facility] Department of Laboratories [place], [place] [id number] * (ABNORMAL) Basic metabolic panel (11/19/2024 9:52 AM CDT) Sodium 145 135 - 145 mmol/L Potassium, pl 5.0(H) 3.3 - 4.9 mmol/L [facility] Chloride 106 97 - 110 mmol/L [facility] CO2 29 22 - 32 mmol/L [facility] Anion gap 10 2 - 15 mmol/L [facility] BUN 16 6 - 25 mg/dL [facility] Creatinine 0.82 0.80 - 1.30 mg/dL [facility] Glucose 180 70 - 199 mg/dL [facility] Comment: Interpretive Data Fasting glucose >/= 126 [...] 2022. Calcium 9.7 8.5 - 10.3 mg/dL [facility] Blood 11/19/2024 9:52 AM CDT 11/19/2024 10:32 AM CDT Rajni Tovar NP LAB BLOOD ORDERABLES Final Re sult [facility] [place] [address] * POCT hemoglobin A1c (11/12/2024 8:05 AM TOURIST INFORMATION ASSISTANT) Hemoglobin A1C, POC 7.8 4.0 - 5.6 % Capillary blood 11/12/2024 8 :05 AM TOURIST INFORMATION ASSISTANT Rajni Tovar BUILDING DRAFTER POINT OF CARE TEST ORDERABLES Final Result * Colonoscopy (08/12/2024 8:00 AM TOURIST INFORMATION ASSISTANT) Anatomical Region Laterality Modality Other Narrative Procedure Note Eric, Willy B., MD - 08/12/2024 8:00 AM CST [facility] Patient Name: Spencer Santana Procedure Date: 08/12/2024 8:00 AM Date of : 1960 Admit Type: Outpatient Age: 63 Gender: Male Attending MD: Willy Reyes M.D. Room: [facility] ENDOSCOPY ROOM 4 Note Status: Finalized Procedure: [...] The scope was passed under direct vision.The CF [id number] endoscope was introduced through the anus and [...] 0 Note Initiated On: 08/12/2024 8:00 AM Willy Reyes MD ENDOSCOPY PROCEDURES Final Result * PSA screen (05/09/2024 9:05 AM CDT) PSA 2.5 0.0 - 4.0 ng/mL [facility] - 01 Comment: David ECLIA methodology. According to the [place] [employer], Serum PSA should decrease and [...] - 05/10/2024 5:09 AM CDT Performed at: [facility] [address] [id number] [place]: Robles Juarez PhD, Phone: [phone] us Rajni Tovar BUILDING DRAFTER LAB BLOOD ORDERABLES [facility] - 01 * Albumin Creatinine Ratio, [...] - 05/10/2024 5:09 AM CDT Performed at: - [address] [id number] [place]: Robles Juarez PhD, Phone: [phone] Rajni Tovar BUILDING DRAFTER LAB URINE ORDERABLES Final [facility] - 01 * Serum Hepatitis panel (02/09/2015 11:24 AM CDT) HCV ab Negative NEG HISTORICAL RESULTS Comment: Interpretive Data If confirmation is required, call Laboratory Customer Service to request sample to be sent to [facility] for Hepatitis C Virus (HCV) RNA Detection and Quantitation by Real-Time Reverse Color Checker-PCR (RT-PCR). Current interpretive data was last revised [...] Juan Ponce MD LAB BLOOD ORDERABLES Rina mckeon Result HISTORICAL RESULTS from Last 3 Months or Most Recently Relevant to Health Maintenance Insurance [facility]ICE PLUS [facility] HMO/PPO Address: [address] [address] [place] [address] AETNA SIG 63624 AETNA SIG [id number] AETNA SIG [id number] Advance Directives For more information, please contact: [phone] * Full Code (Latest Code Status on File) Date Activated Date Inactivated Comments 12/19/2024 9:37 AM 12/19/2024 4:09 PM * Full Code Date Activated Date Inactivated Comments 08/12/2024 7:45 AM 08/12/2024 2:36 PM Care Teams Business Technology Professor Relationship Specialty Start Date End Date Jim Abbasi MD PCP - General Endocrinology Diabetes & Metabolism 06/15/20
--- OUTSIDE RECORDS SUMMARY | 2025-02-09 13:15 | XMS_ITS | Clinical Summary ---
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 This disclosure is being madepursuant to the Care Everywhere program and may not contain all information available regarding this patient. Last updated 18.[facility] [employer] Allergies No known active allergies Medications * Be aware that medications may not be up to date on this document. Alwaysverify current medications with the patient. metFORMIN (GLUCOPHAGE) 500 MG tablet Take 500 mg by mouth 2 times daily with breakfast and dinner. Active hydrocodone-leslie taminophen (VICODIN) 5-500 MG tablet Take 1-2 Tabs by mouth 4 times daily as needed for Pain. 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 Gender Identity Not on file Sexual Orientation Not on file Last Filed Vital Signs Vital Sign Reading Time Taken Comments Blood Pressure 140/86 08/07/2012 6:49 PM ATOMIC FUEL ASSEMBLER Pulse 98 08/07/2012 6:49 PM ATOMIC FUEL ASSEMBLER Temperature 36.9 C (98.4 F) 08/07/2012 6:49 PM ATOMIC FUEL ASSEMBLER Respiratory Rate 14 08/07/2012 6:49 PM ATOMIC FUEL ASSEMBLER Oxygen Saturation 100% 08/07/2012 6:49 PM ATOMIC FUEL ASSEMBLER Inhaled Oxygen Concentration - - Weight 104.3 kg (230 lb) 08/07/2012 5:44 PM ATOMIC FUEL ASSEMBLER Height 185.4 cm (6' 1) 08/07/2012 5:44 PM ATOMIC FUEL ASSEMBLER Body Mass Index 30.34 08/07/2012 5:44 PM ATOMIC FUEL ASSEMBLER Plan of Treatment Health Maintenance Due Date Last Done Comments COLOGUARD (AGES 45-75) - COL ON CA SCREENING 1960 COLON MONITORING 1960 COLONOSCOPY - COLON CA SCREENING 1960 CT COLONOGRAPHY - COLON CA SCREENING 1960 Colorectal Cancer Screening 1960 FIT - COLON CA SCREENING 1960 FLEX SIG - COLON CA SCREENING 1960 LIPID TESTING 1960 HIV SCREENING 1977 HEPATITIS C SCREENING 08/11/1980 DTAP/TDAP/TD VACCINES (1 - Tdap) 1981 PNEUMOCOCCAL VACCINE 50+ (1 of 1 - PCV) 2012 ZOSTER VACCINE (1 of 2) 2012 COVID-19 VACCINE (1 - 2023-2 5 season) 2024 DEPRESSION SCREENING 09/10/2024 INFLUENZA VACCINE (Season Ended) 2025 Respiratory Syncytial Virus (RSV) Vaccine Pt: or over 60 yrs (1 - 1-dose 75+ series) 2037 HEPATITIS B VACCINE Aged Out No longe r eligible based on patient's age to complete this topic HIB VACCINE Aged Out No longer eligi ble based on patient's age to complete this topic HPV VACCINE Aged Out No longer eligi ble based on patient's age to complete this topic MENINGOCOCCAL (Group B) VACC INE SHARED DECISION-MAKING Aged Out No longer eligibl e based on patient's age to complete this topic MENINGOCOCCAL GROUPS A/C/Y/W VACCINE Aged Out No longer eligible b ased on patient's age to complete this topic
[2025-02-09 13:16] VITALS: BP 127/77; PULSE 85; RESP 20; TEMP 36.6; O2SAT 99
--- NOTE | 2025-02-09 13:31 | ED.GENADULT ---
HPI - General Adult General Chief complaint: Skin/Abscess/Foreign Body Stated complaint: Skin/Abscess/Foreign Body History of Present Illness HPI narrative: Spencer Santana is a 64 y/o male Presents today with complaints of increased pain area that he had a mole removed. He states that he had a mole on the side of his abdomen removed 4 days ago. He states he has had previous moles removed and did have any issues. He states that with this 1 he has been having increased pain discomfort and redness surrounding and the and concern for possible secondary infection to the area. Denies any fevers or chills. He was unable to get in with the health promotion specialist. Related Data Allergies Allergy/AdvReac Type Severity Reaction Status Date / Time No Known Allergies Allergy Verified 02/09/25 13:18 Review of Systems Review of Systems: All systems reviewed & are unremarkable except as noted in HPI and below Exam Narrative: GENERAL: Well-appearing, well-nourished, and in no acute distress. HEAD: Normocephalic, atraumatic. EYES: PERRLA and EOMI. ENT: Nares clear, no rhinorrhea or epistaxis. Mucous membranes moist NECK: Supple. No adenopathy or masses. No carotid bruits or JVD CHEST: Clear to auscultation. No respiratory distress. No wheezes rales or rhonchi HEART: Regular rate and rhythm. No murmur heard. Normal peripheral pulses. ABDOMEN: Soft, nontender, nondistended, normal active bowel sounds. EXTREMITIES: Normal range of motion. No edema. SKIN: Area approximately 1.5 x 2 cm round with a whitish typical yellow center questionable drainage around the edges with erythema make edges and mild surrounding pink. No hardening under the skin felt NEURO: No focal deficits. Alert and oriented x3. PSYCH: Normal mood and affect. Course Course Level of Care: Express Care Visit Vital Signs Vital signs: Vital Signs Temperature 36.6 C 02/09/25 13:16 Pulse Rate 85 02/09/25 13:16 Respiratory Rate 02/09/25 13:16 Blood Pressure 127/77 02/09/25 13:16 Pulse Oximetry 99 02/09/25 13:16 Oxygen Delivery Room Air 02/09/25 13:16 Temperature 36.6 C 02/09/25 13:16 Pulse Rate 85 02/09/25 13:16 Respiratory Rate 20 02/09/25 13:16 Blood Pressure 127/77 02/09/25 13:16 Pulse Oximetry 99 02/09/25 13:16 Oxygen Delivery Room Air 02/09/25 13:16 Medical Decision Making MDM Narrative Medical decision making narrative: 64 y/o male status post day 4 from mole removal at health promotion specialist office, here today concerned that it may not be healing well and feeling more painful The area to right side of abdomen is about 1.5 x 2 cm center is whitish yellow with scab / erythemic edges and pink/erythema surrounding No obvious pus drainage / no hardening abscess appreciated based on his symptoms and concern will empirically start Bactrim BID , encouraged to follow up with his health promotion specialist and to seek ER care for any worsening symptoms of infection Patient is comfortable with this plan Sterile dressing placed, encouraged to keep area cleansed/ dry and covered while healing. Vital Signs Vital Signs: Vital Signs Temperature 36.6 C 02/09/25 13:16 Pulse Rate 85 02/09/25 13:16 Respiratory Rate 20 02/09/25 13:16 Blood Pressure 127/77 02/09/25 13:16 Pulse Oximetry 99 02/09/25 13:16 Oxygen Delivery Room Air 02/09/25 13:16 Temperature 36.6 C 02/09/25 13:16 Pulse Rate 85 02/09/25 13:16 Respiratory Rate 20 02/09/25 13:16 Blood Pressure 127/77 02/09/25 13:16 Pulse Oximetry 99 02/09/25 13:16 Oxygen Delivery Room Air 02/09/25 13:16 Vitals reviewed by me Discharge Plan Discharge Clinical Impression: Encounter for post surgical wound check Patient Disposition: Home Condition: Stable Instructions: Antibiotic Form Additional Instructions: Continue to keep area covered Start taking the Bactrim twice daily for 1 week In the mean time follow up with PCP and Respiratory Care Assistant IF you develop increased pain/ swelling/ drainage/ fever or feel that it is getting worse then proceed to the ER. Patient Language: Maltese Prescriptions: New sulfamethoxazole-trimethoprim [Bactrim DS] 800-160 mg tablet 1 tablet PO Q12H 7 Days Qty: 14 0RF Follow-up/Referrals: Elroy,Jim Hernandez MD [Primary Care Provider] - 3 Days Time of Disposition: 13:34
== END 2025-02-09 13:38 | disposition home or self-care (01) ==
PROVIDERS: Emergency Provider Nurse Practitioner Family; PCP Internal Medicine Endocrinology, Diabetes & Metabolism
DX: Z48.01 Encounter for change or removal of surgical wound dressing (principal)
CPT/HCPCS: 99203; G0463